=== PATIENT | male | born 1945 | race Caucasian/White ===

== ENCOUNTER → 2025-03-13 | Outpatient (CLI) | payer OTHER, SELFPAY ==
--- NOTE | 2025-03-13 09:39 | ECHOD_ITS ---
Reason For Study Reason For Study: CAD/ASHD Procedure This was a 2D Doppler, Color Flow transthoracic echocardiogram. Exam performed in department. Left Ventricle Normal LV size. Left ventricular systolic function is normal. The left ventricular ejection fraction is 65 %. Stage 1 diastolic dysfunction. No regional wall motion abnormalities noted. Right Ventricle Normal RV size. Normal systolic function. Atria Normal left atrium. Normal right atrium. Mitral Valve Normal mitral valve. Tricuspid Valve Normal tricuspid valve. Mild to moderate (1-2+) tricuspid valve insufficiency. Pulmonary artery systolic pressure is 40 mmHg. Aortic Valve Trisinus/trileaflet aortic valve. Mild focal aortic valve thickening. Pulmonic Valve Normal pulmonic valve. Great Vessels Normal aortic root. The pulmonary artery is normal size. Inferior vena cava collapse with respiration. Pericardium/Pleural No pericardial effusion. MMode/2D Measurements & Calculations LVIDd: 3.8 cm IVSd: 1.3 cm LVOT diam: 2.0 cm LVIDs: 2.8 cm LVPWd: 1.0 cm LVOT area: 3.1 cm2 RVDd: 4.0 cm FS: 26.2 % Ao root diam: 3.7 cm LAV(MOD-bp): 40.1 ml LVAd ap4: 24.8 cm2 LAV(MOD-bp) Indexed: 22.6 ml/m2 LVLd ap4: 7.5 cm LAV(MOD-sp2): 42.7 ml EDV(MOD-sp4): 66.4 ml LAV(MOD-sp4): 33.8 ml EDV(sp4-el): 69.9 ml LVAs ap4: 13.7 cm2 LVLs ap4: 6.5 cm ESV(MOD-sp4): 24.4 ml ESV(sp4-el): 24.4 ml EF(MOD-sp4): 63.2 % EF(sp4-el): 65.1 % SV(MOD-sp4): 42.0 ml SV(sp4-el): 45.5 ml LA A4 area: 14.9 cm2 SI(MOD-sp4): 23.7 ml/m2 LA dimension(2D): 3.7 cm RA A4 area: 10.7 cm2 Time Measurements MV dec time: 0.17 sec Doppler Measurements & Calculations MV E max tomas: 82.9 cm/sec Lat Peak E' Tomas: 6.3 cm/sec Med Peak E' Tomas: 5.4 cm/sec MV A max tomas: 88.1 cm/sec E/E' lat: 13.2 E/E' med: 15.5 MV E/A: 0.94 MV V2 max: 98.4 cm/sec Ao V2 max: 247.2 cm/sec MV max P.9 mmHg MV dec slope: 484.7 cm/sec2 Ao max P.5 mmHg MV V2 mean: 62.7 cm/sec Ao V2 mean: 162.2 cm/sec MV mean P.7 mmHg Ao mean P.2 mmHg MV V2 VTI: 29.1 cm Ao V2 VTI: 50.8 cm PA V2 max: 150.8 cm/sec TR max tomas: 298.4 cm/sec PA V2 mean: 109.0 cm/sec TR max P.6 mmHg ECHO/Echo Complete Interpretation Summary Normal LV size. Left ventricular systolic function is normal. The left ventricular ejection fraction is 65 %. Stage 1 diastolic dysfunction. Pulmonary artery systolic pressure is 40 mmHg. Ordering Physician: Jarrod Tovar Referring Physician: Jarrod Tovar Performed By: Latisha Dow RCS
== END | disposition home or self-care (01) ==
PROVIDERS: Referring Provider Chiropractor; Visit Provider Chiropractor
DX: I25.10 Atherosclerotic heart disease of native coronary artery without angina pectoris (principal)
CPT/HCPCS: 93306